=== PATIENT | male | born 1930 | race Caucasian/White ===

== ENCOUNTER 2017-01-05 10:18 | Inpatient (IN) | payer MEDICARE, BC ==
[~2017-01-05 10:18] MED LIST: ACETAZOLAMIDE250 MG PO; ACYCLOVIR400 MG PO; ADULT ASPIRIN81 MG PO; AGGRENOX1 CAP PO; ALLERGY RELIEF10 M2 PO; ALLERGY10 M1 PO; ALLERGY10 MG PO; ALPHAGAN P 0.15%5 ML LEFT EYE; ALPHAGAN P10 ML OP; ALPRAZOLAM0.5 MG PO; AMLODIPINE BESY10 MG PO; AMLODIPINE BESYL5 MG PO; ARTIFICIAL TEA3.5 GM OP; ARTIFICIAL TEAR15 M OU; ARTIFICIAL TEAR15 M3 OP; ASPIR 8181 MG PO; ASPIRIN EC81 M1 PO; ASPIRIN325 MG; ATENOLOL25 MG PO; ATENOLOL50 MG; ATROPINE SULFATE2 ML OP; ATROVENT 0.03%30 ML; ATROVENT 0.03%30 ML NS; BETAGAN5 ML LEFT EYE; BETAGAN5 ML OP; BETAGAN5 ML OU; CARBOXYMETHYLCELLULOSE OP; CARDURA8 MG PO; COLACE100 MG PO; COREG12.5 M1 PO; COREG12.5 MG PO; COREG3.125 MG PO; COREG6.25 M1 PO; COREG6.25 MG PO; COUMADIN2.5 MG PO; COUMADIN5 M1 PO; COUMADIN5 MG; COUMADIN5 MG PO; CROMOLYN SOD40 MG/ML NS; DEEP SEA45 ML NS; DEXAMETHASONE; DEXAMETHASONE SO5 ML OP; DIAMOX SEQUELS500 MG PO; DICLOFENAC OP; DICLOFENAC SODIU5 ML RIGHT EYE; DOCUSATE SODIU100 MG PO; DONEPEZIL HCL5 M2 PO; DOXAZOSIN MESYLA8 MG PO; DUREZOL5 M1 OP; EFFEXOR XR75 MG PO; EFFEXOR37.5 MG PO; EFFEXOR75 M1 PO; ELIQUIS2.5 M1 PO; EYE LUBRICANT; FISH OIL 1,0001 CA PO; FISH OIL 1,0001 CA1 PO; FLOMAX0.4 M1 PO; FLOMAX0.4 MG PO; FLONASE16 G1; FUROSEMIDE40 M1 PO; GABAPENTIN300 M1 PO; GABAPENTIN300 MG PO; GENTEAL15 ML OP; HYDROCHLOROTHIA25 MG; HYDROCODON-ACE1 EA15 PO; HYDROCODONE/A PO; HYDROCODONE/APA1 CAP PO; HYDROCODONE/APA1 TAB PO; IRON1 TA1 PO; ISOSORBIDE MONO30 MG; LACTASE ENZYME1 TAB PO; LASIX20 M1 PO; LATANOPROST2.5 ML OP; LESCOL20 MG; LEVOBUNOLOL HCL5 M1 OP; LEVOTHROID25 MCG PO; LEVOTHYROXINE25 MC3 PO; LISINOPRIL10 MG PO; LISINOPRIL20 M1 PO; LISINOPRIL20 MG; LISINOPRIL20 MG PO; LOVENOX80 MG/0.8 SQ; LUBRICANT EYE1 EACH RIGHT EYE; LUBRICANT EYE3.5 G1 OP; LUBRICANT EYE3.5 G2 BOTH EYES; LUBRICATING OPH OP; LUBRIFRESH PM3.5 GM BOTH EYES; LUBRIFRESH PM3.5 GM OP; METAMUCIL1 PKT PO; MORPHINE SULFAT1 PO; MOXIFLOXACIN OP; MULTI VITAMIN1 EAC1 PO; MULTIVITAMIN1 TAB PO; NASAL ALLERG40 MG/ML NS; NASALCROM40 MG/ML NS; NITROGLYCERIN0.4 MG SL; NITROQUICK0.4 MG SL; NORCO 10/325 TA1 TAB PO; NORCO 10/3251 TAB PO; NORCO 5/3251 TA1 PO; NORVASC10 MG PO; OCUVITE TABLET1 EACH PO; OCUVITE TABLET1 TAB PO; OMEGA 31 CAP PO; OMEPRAZOLE20 M1 PO; OMEPRAZOLE20 MG PO; ONDANSETRON HCL4 MG PO; PLAVIX75 MG; PREDNISOLONE AC15 ML OP; PREDNISOLONE AC15 ML RIGHT EYE; PRILOSEC20 MG PO; PROSCAR5 M1 PO; PROTONIX40 M3 PO; PSYLLIUM390 GM PO; REFRESH EYE DRO50 EA OP; REFRESH LACRI-3.5 GM OP; REFRESH PLUS OP; REFRESH TEARS15 M1 OP; REFRESH TEARS15 ML OP; SEROQUEL25 M1 PO; SERTRALINE HCL100 M2 PO; TENORMIN25 MG; TOBRAMYCIN; TRAVATAN 0.0042.5 ML OU; TRAZODONE; TRAZODONE HCL50 M1 PO; TRAZODONE50 MG PO; TYLENOL325 MG PO; TYLENOL500 MG PO; VALACYCLOVIR500 MG PO; VENLAFAXINE H37.5 M3 PO; XANAX0.25 MG PO; ZIRGAN OP; ZIRGAN5 GM OP; ZOCOR20 MG PO; ZOCOR5 MG; ZOFRAN4 MG PO; ZOLOFT100 MG; ZOLOFT100 MG PO; [UNRECOGNIZED DRUG - OTHER] NS; [UNRECOGNIZED DRUG - OTHER] PO; [UNRECOGNIZED DRUG - OTHER] PO
[2017-01-05] MEDS ORDERED: NORVASC10 M2 PO (11:10)
[2017-01-05] MEDS ORDERED: ZOVIRAX200 M1 PO (11:10)
[2017-01-05] MEDS ORDERED: XANAX0.25 M1 PO (11:10)
[2017-01-05] MEDS ORDERED: REFRESH PLUS1 EACH OP (11:11)
[2017-01-05] MEDS ORDERED: LIPITOR40 M1 PO (11:11)
[2017-01-05] MEDS ORDERED: ELIQUIS5 M1 PO (11:11)
[2017-01-05] MEDS ORDERED: PROSCAR5 M1 PO (11:12)
[2017-01-05] MEDS ORDERED: CARVEDILOL12.5 M1 PO ×2 (11:12)
[2017-01-05] MEDS ORDERED: ARICEPT10 M2 PO (11:12)
[2017-01-05] MEDS ORDERED: FLONASE ALLERG9.9 ML (11:13)
[2017-01-05] MEDS ORDERED: NEURONTIN300 M1 PO ×3 (11:14→11:16)
[2017-01-05] MEDS ORDERED: LASIX20 M1 PO (11:14)
[2017-01-05] MEDS ORDERED: ZESTRIL40 M2 PO (11:17)
[2017-01-05] MEDS ORDERED: SYNTHROID25 MC1 PO (11:17)
[2017-01-05] MEDS ORDERED: IPRATROPIUM BRO30 M1 (11:17)
[2017-01-05] MEDS ORDERED: HYDROCODON-ACE1 EA15 PO (11:17)
[2017-01-05] MEDS ORDERED: CLARITIN10 M6 PO (11:18)
[2017-01-05] MEDS ORDERED: OMEPRAZOLE20 M3 PO (11:18)
[2017-01-05] MEDS ORDERED: FLOMAX0.4 M1 PO (11:19)
[2017-01-05] MEDS ORDERED: DISALCID500 M1 PO (11:19)
[2017-01-05] MEDS ORDERED: TRAZODONE HCL50 M1 PO (11:19)
[2017-01-05] MEDS ORDERED: COLACE100 M1 PO (11:20)
[2017-01-05] MEDS ORDERED: VENLAFAXINE H37.5 M3 PO (11:20)
[2017-01-05] MEDS ORDERED: CHLORHEXIDINE473 M1 SSP (11:37)
[2017-01-05 11:38] LABS: BASO % 0.3 % (0-2); EOS % 1.3 % (0-7); EOSINOPHIL ABSOLUTE COUNT 0.1 tho/cmm (0.0-0.7); HCT-HEMATOCRIT 40.7 % (36.0-53.5); HGB-HEMOGLOBIN 13.8 gm/dl (13.5-17.0); IMMATURE GRANULOCYTES ABSOLUTE 0.01 tho/cmm (0-0.03); IMMATURE GRANULOCYTES PERCENT 0.1 % (0-0.3); LYMPH % 10.9 % (20-45); LYMPH ABSOLUTE COUNT 0.8 tho/cmm (0.8-4.5); MCH (MEAN CORPUSCULAR HGB) 31.2 pg (28.0-32.0); MCHC MEAN CORPUSCULAR HGB CONC 33.9 % (32.0-36.0); MCV (MEAN CELL VOLUME) 91.9 fl (82.0-96.0); MEAN PLATELET VOLUME 10.4 cmc (9.4-12.4); MONO % 3.6 % (0-12); MONOCYTE ABSOLUTE COUNT 0.3 tho/cmm (0.0-1.2); NEUTROPHIL ABSOLUTE COUNT 5.9 tho/cmm (1.6-8.0); NEUTROPHIL-AUTOMATED 5.9 tho/cmm (1.6-8.0); NEUTROPHILS % 83.8 % (40-80); PLATELET COUNT 116 tho/cmm (150-450); RED BLOOD COUNT 4.43 mil/cmm (4.40-5.70)
[2017-01-05 11:49] LABS: ALBUMIN 3.7 g/dl (3.5-5.0); ALKALINE PHOSPHATASE 58 U/L (33-138); ALT/SGPT 19 U/L (12-78); ANION GAP 9 mmol/L (0-20); AST/SGOT 21 U/L (10-40); BILIRUBIN,TOTAL 0.6 mg/dl (0.0-1.5); BLOOD UREA NITROGEN 15 mg/dl (6-24); CALCIUM 8.8 mg/dl (8.5-10.5); CARBON DIOXIDE-VENOUS 29 mmol/L (22-32); CHLORIDE 107 mmol/l (96-110); CREATININE 0.78 mg/dl (0.60-1.30); GLUCOSE 157 mg/dL (70-110); POTASSIUM 3.8 mmol/L (3.7-5.1); SODIUM 141 mmol/L (135-145); eGFR VALUE FOR BLACK >90 mL/Min
[2017-01-05 14:00] LABS: MAGNESIUM 1.8 mg/dl (1.3-2.6)
[2017-01-05 19:19] LABS: TSH-THYROID STIMULATING HORM. 2.46 uIU/ml (0.40-3.80)
[2017-01-06] MEDS ORDERED: SEROQUEL25 M2 PO (16:45)
== END 2017-01-06 17:35 | DRG 312 ==
LOC: EDMED 10:18 → EMR2 14:49 → 5EB 17:20
PROVIDERS: Emergency Medicine; Nurse Practitioner Family; Psychiatry & Neurology Neurology; ADMIT Internal Medicine Cardiovascular Disease
DX: R55 Syncope and collapse (principal); B37.0 Candidal stomatitis; I50.32 Chronic diastolic (congestive) heart failure; F03.90 Unspecified dementia, unspecified severity, without behavioral disturbance, psychotic disturbance, mood disturbance, and anxiety; I11.0 Hypertensive heart disease with heart failure; I25.5 Ischemic cardiomyopathy; R13.10 Dysphagia, unspecified; I25.10 Atherosclerotic heart disease of native coronary artery without angina pectoris; I48.2 Chronic atrial fibrillation; E03.9 Hypothyroidism, unspecified; R11.11 Vomiting without nausea; F41.9 Anxiety disorder, unspecified; R41.82 Altered mental status, unspecified; Z95.1 Presence of aortocoronary bypass graft; Z86.73 Personal history of transient ischemic attack (TIA), and cerebral infarction without residual deficits; Z79.01 Long term (current) use of anticoagulants; H54.41 Blindness, right eye, normal vision left eye; H40.9 Unspecified glaucoma; Z87.891 Personal history of nicotine dependence; Z88.8 Allergy status to other drugs, medicaments and biological substances; Z95.0 Presence of cardiac pacemaker; G89.29 Other chronic pain; Z66 Do not resuscitate; M19.90 Unspecified osteoarthritis, unspecified site; R94.31 Abnormal electrocardiogram [ECG] [EKG]
CPT/HCPCS: G0378; G8978-GP-CK; G8979-GP-CJ; G8980-GP-CJ; G8981-GP-CI; G8987-GO-CJ; G8988-GO-CI; G8989-GO-CJ; G8996-GN-CK; G8997-GN-CJ; G8997-GN-CK; G8998-GN-CK; J1650; J2270; J2405; J7030